=== PATIENT | female | born 1980 | race Caucasian/White ===

== ENCOUNTER 2016-12-28 06:54 | Inpatient (IN) | payer MEDICAID ==
[~2016-12-28] VITALS: Ht 149.9 cm; Wt 80.5 kg
[~2016-12-28 06:54] MED LIST: CALC600T5 PO; PREN-21 PO; [UNRECOGNIZED DRUG - CODE] SQ
[2016-12-28 07:32] VITALS: BP 121/76; PULSE 72; Ht 149.9 cm; Wt 80.5 kg
[2016-12-28] MEDS ORDERED: BUTORPHANOL 2 MG INJ IV PRN (08:00)
[2016-12-28] MEDS ORDERED: METHYLERGONOVINE 0.2 MG INJ IM PRN (08:00)
[2016-12-28] MEDS ORDERED: OXYTOCIN 30 UNITS/LR 500 ML IV PRN (08:00)
[2016-12-28] MEDS ORDERED: CARBOPROST 250 MCG INJ IM PRN (08:00)
[2016-12-28] MEDS ORDERED: LIDOCAINE 1% (MPF) 30 ML INJ INJ PRN (08:00)
[2016-12-28] MEDS ORDERED: MISOPROSTOL 200 MCG TAB PR PRN (08:00)
[2016-12-28] MEDS ORDERED: LACTATED RINGER'S 1,000 ML IV PRN (08:00)
[2016-12-28] MEDS: BUTORPHANOL 2 MG INJ IV PRN ×2 (08:24→10:57)
[2016-12-28] MEDS: LACTATED RINGER'S 1,000 ML IV SCH ×2 (09:14→13:21)
[2016-12-28] MEDS ORDERED: MINERAL OIL LIGHT 10 ML VIAL TOP PRN (09:30)
[2016-12-28 09:37] LABS: WHITE BLOOD COUNT 5.2 10^3/ul (4.8-10.8)
[2016-12-28 09:38] LABS: BASOPHILS % 0.6 % (0.0-2.0); EOSINOPHILS % 0.2 % (0.0-7.0); HEMATOCRIT 41.5 % (37.0-47.0); HEMOGLOBIN 14.3 g/dl (12.0-16.0); LYMPHOCYTES # 1.3 10^3/ul (0.8-2.9); LYMPHOCYTES % 25.3 % (15.0-51.0); MEAN CORPUSCULAR HEMOGLOBIN 30.2 pg (29.0-33.0); MEAN CORPUSCULAR HGB CONC 34.5 g/dl (32.0-37.0); MEAN CORPUSCULAR VOLUME 87.6 fl (82.0-101.0); MEAN PLATELET VOLUME 12.1 fl (7.4-10.4); MONOCYTE # 0.4 10^3/ul (0.3-0.9); MONOCYTES % 7.1 % (0.0-11.0); NEUTROPHIL # 3.4 10^3/ul (1.6-7.5); PLATELET COUNT 164 10^3/UL (140-415); RED BLOOD COUNT 4.74 10^6/ul (4.20-5.40); RED CELL DISTRIBUTION WIDTH 14.7 % (11.5-14.5)
[2016-12-28 11:35] LABS: INR 0.91; PROTIME 12.3 Sec (12.2-14.2)
[2016-12-28 11:36] LABS: PARTIAL THROMBOPLASTIN TIME 28.3 Sec (25.0-35.0)
[2016-12-28] MEDS ORDERED: FENTAnyl 2MCG/ML-ROPIV 0.2% 100 ML ONE (11:49)
[2016-12-28 11:52] LABS: ALBUMIN 3.4 g/dl (3.3-4.9); ALBUMIN/GLOBULIN RATIO 1.21; BILIRUBIN,INDIRECT 0.1 mg/dl (0-1.1); BILIRUBIN,TOTAL 0.1 mg/dl (0.2-1.3); CALCIUM 9.2 mg/dl (8.4-10.2); CREATININE 0.92 mg/dl (0.44-1.00); POTASSIUM 4.8 mmol/L (3.5-5.1); TOTAL PROTEIN 6.2 g/dl (6.1-8.1)
[2016-12-28] MEDS ORDERED: DIPHENHYDRAMINE 50 MG INJ IV PRN (12:00)
[2016-12-28] MEDS ORDERED: ONDANSETRON 4 MG INJ IV PRN (12:00)
[2016-12-28] MEDS ORDERED: FENTAnyl 2MCG/ML-ROPIV 0.2% 100 ML BAG EPI SCH (12:00)
[2016-12-28] MEDS ORDERED: EPHEDrine SULFATE 50 MG/5 ML SYG IV PRN (12:00)
[2016-12-28] MEDS ORDERED: NALOXONE (0.4 MG/ML) INJ IV PRN (12:00)
[2016-12-28] MEDS ORDERED: OXYTOCIN 30 UNITS/LR 500 ML IV SCH ×3 (17:00→21:00)
--- NOTE | 2016-12-28 17:33 | HP ---
Date/Time of Note Date/Time of Note DATE: 12/28/16 TIME: 17:32 OB - History Hx of Present Free Text/Dictation ucx \ : 3 Para: 2 Care: Good Care Ultrasounds: Normal mid trimester US Obstetrical Complications: None Past Family/Social History * Past Medical, Surgical, Family and Obstetric Histories reviewed from chart. OB Admission Exam Vital Signs Vital Signs Vital Signs Date Time Temp Pulse Resp B/P Pulse Ox O2 Delivery O2 Flow Rate FiO2 12/28/16 07:32 97.8 72 121/76 Physical Exam Heart: Rhythm Normal Extremities: Normal Reflexes: Normal Last 72 hours Lab Results CBC & BMP 12/28/16 08:00 12/28/16 10:31 Liver Function Test 12/28/16 10:31 Alanine Aminotransferase (ALT/SGPT) 42 Albumin 3.4 Alkaline Phosphatase 253 H Aspartate Amino Transf (AST/SGOT) 25 Direct Bilirubin 0.00 Total Protein 6.2 OB Assessment/Plan Reason for admission: active labor Plan: Expectant Management Other plan: iup term plan BERRY KENNEDY MD Dec 28, 2016 17:33
[2016-12-28] MEDS ORDERED: LIDOCAINE 2%/EPI 30 ML INJ ONE (22:37)
[2016-12-28] MEDS ORDERED: nitroGLYCerin 50 MG INJ ONE (22:46)
--- NOTE | 2016-12-28 23:44 | RADRPT ---
PROCEDURE: Pelvic ultrasound, limited. CLINICAL INDICATION: Pelvic pain. TECHNIQUE: Multiple sonographic images of the pelvis were obtained utilizing a transabdominal aleah hnique. The images were reviewed on a PACS workstation. COMPARISON: None. FINDINGS: The uterus is enlarged and heterogeneous. No abnormal uterine mass is identified. The endometrial e cho complex is homogeneous and measures 21.6 mm. There is no abnormal flow to suggest retained produ cts. IMPRESSION: Thickened endometrium with no evidence of retained products. .Singh Sierra MD, Date Time Electronically viewed and signed by .Singh Sierra MD, MD on 12/28/2016 23:43 .T/
[2016-12-29] MEDS ORDERED: LACTATED RINGER'S 1,000 ML IV* SCH ×4 (00:37→00:51)
[2016-12-29] MEDS ORDERED: DEXTROSE 5%-LR 1,000 ML IV SCH ×4 (00:37→00:51)
[2016-12-29] MEDS: DEXTROSE 5%-LR 1,000 ML IV SCH ×3 (00:37→16:37)
[2016-12-29] MEDS ORDERED: CARBOPROST 250 MCG INJ IM PRN ×5 (01:00)
[2016-12-29] MEDS ORDERED: DIPHENHYDRAMINE 50 MG INJ IV PRN (01:00)
[2016-12-29] MEDS ORDERED: ONDANSETRON 4 MG INJ IV PRN (01:00)
[2016-12-29] MEDS ORDERED: WITCH HAZEL/GLYCERIN PAD PR PRN (01:00)
[2016-12-29] MEDS ORDERED: LANOLIN 7 GM TUBE TOP PRN (01:00)
[2016-12-29] MEDS ORDERED: MISOPROSTOL 200 MCG TAB PR PRN ×5 (01:00)
[2016-12-29] MEDS ORDERED: DIBUCAINE 1% 30 GM OINT PR PRN (01:00)
[2016-12-29] MEDS ORDERED: METHYLERGONOVINE 0.2 MG INJ IM PRN ×5 (01:00)
[2016-12-29] MEDS ORDERED: ACETAMINOPHEN 325 MG TAB PO PRN (01:00)
[2016-12-29] MEDS ORDERED: OXYCODONE/ASPIRIN (4.88/325) TAB PO PRN (01:00)
[2016-12-29] MEDS ORDERED: ZOLPIDEM 5 MG TAB PO PRN (01:00)
[2016-12-29] MEDS ORDERED: OXYTOCIN 30 UNITS/LR 500 ML IV PRN ×5 (01:00)
[2016-12-29] MEDS ORDERED: BENZOCAINE 20% 56 ML SPRAY TOP PRN (01:00)
--- NOTE | 2016-12-29 01:14 | LDN ---
Date/Time of Note Date/Time of Note DATE: 12/29/16 TIME: 01:05 Delivery Summary 36 y/o with h/o still at 25 wks and DVT with first delivered a female over 2nd degree laceration. Weight: 3335 gram- 7 lbs 6 oz Apagar: 8 and 9 Time of delivery: 21:18 Placenta not delivered after one hour. Patient transferred to OR for removal of retained placenta Weeks of Gestation 38 1/7 weeks Placenta Delivered: Spontaneously Meconium: none Episiotomy: No Perineal laceration: 2 Laceration repair: 3-0 vicryl Anesthesia type: Epidural Estimated blood loss: 100 Sponge & Needle done & correct: Yes All needle counts correct: Yes Any foreign bodies felt in the: No Problems: Infant Delivery Information Sex Sex: female Apgars 1 Minute: 8 5 Minute: 9 Suctioning Nose & mouth suctioned at ladan: Yes Umbilical Cord Umbilical cord with: 3 Vessels Cord presentations: no nuchal cord Cord Blood was obtained: Yes NANCY AGUILLON Dec 29, 2016 01:14
[2016-12-29] MEDS: CEFAZOLIN 1 GM/50 ML (PMX) 50 ML IVPB SCH ×3 (01:34→17:22)
[2016-12-29 02:35] VITALS: BP 107/68; PULSE 101; RESP 18
[2016-12-29 03:35] VITALS: BP 122/65; PULSE 94; RESP 18
[2016-12-29] MEDS: LACTATED RINGER'S 1,000 ML IV* SCH ×3 (04:17→16:37)
[2016-12-29] MEDS: IBUPROFEN 600 MG TAB PO SCH ×3 (05:39→17:21)
--- NOTE | 2016-12-29 08:43 | QN ---
Documentation Comment PPD#1 is stable ,afebrile tolerates diet No Vb +BM+Adequate urine VS stable Gen NAD Abd soft NT ND Geenitalia No blood at perinium --->discharge plan tomorrow -->remove RODDY Marques M.D. Dec 29, 2016 08:43
[2016-12-29 08:48] VITALS: BP 92/54; PULSE 83; RESP 16
[2016-12-29] MEDS: SENNA/DOCUSATE NA (8.6MG/50MG) TAB PO PRN ×2 (09:03→20:55)
[2016-12-29 11:29] LABS: BASOPHILS % 0.2 % (0.0-2.0); HEMOGLOBIN 9.9 g/dl (12.0-16.0); LYMPHOCYTES # 2.1 10^3/ul (0.8-2.9); LYMPHOCYTES % 16.7 % (15.0-51.0); MEAN CORPUSCULAR HGB CONC 34.1 g/dl (32.0-37.0); MEAN CORPUSCULAR VOLUME 87.9 fl (82.0-101.0); MEAN PLATELET VOLUME 11.6 fl (7.4-10.4); MONOCYTE # 0.9 10^3/ul (0.3-0.9); MONOCYTES % 7.2 % (0.0-11.0); NEUTROPHIL # 9.3 10^3/ul (1.6-7.5); NEUTROPHILS % 75.4 % (39.0-77.0); WHITE BLOOD COUNT 12.4 10^3/ul (4.8-10.8)
[2016-12-29 11:42] LABS: PLATELET COUNT 126 10^3/UL (140-415); POSITIVE DIFF @See below
[2016-12-29] MEDS: ENOXAPARIN 40 MG/0.4 ML SYG SC SCH (12:16)
[2016-12-29 12:22] VITALS: BP 94/53; PULSE 74; RESP 16
--- NOTE | 2016-12-29 13:51 | DS ---
Date/Time of Note Date/Time of Note home today or next day DATE: 12/29/16 TIME: 13:48 Obstetrical Discharge Record Final Diagnosis Final Diagnosis: Term delivered Other Final Diagnosis S/P vaginal delivery Vaginal Delivery Obstetrical Delivery: Spontaneous, Laceration, Repaired Condition on Discharge Physical Assessment Last Vitals: see nurses notes Voiding: Yes Bowel Movement: Yes Breast: Soft, non-tender, Filling Fundus: Firm Abdomen and Incision: soft BS= Episiotomy: N/A perineum healing Calf Tenderness: No Patient Condition: Good MADYSON ZAVALA MD Dec 29, 2016 13:51
--- NOTE | 2016-12-29 13:54 | PD.PPDC ---
[employer] Discharge Instruction Provider Information Physician Information 36 Y/O female had vaginal delivery t Diagnosis Final Diagnosis: S/P vaginal delivery Condition Patient Condition: Good Diet Diet: Resume Regular Diet Activity/Restrictions Activity: Normal Activity May Shower Restrictions: Nothing in the Vagina Return to Work or School: Feb 15, 2017 Follow-up Follow-up with Physician: 4, Week/Weeks (in clinic ) Return to clinic for OB Instructions: Breast Tenderness Depression Comment: pelvic rest X 6 weeks MADYSON ZAVALA MD Dec 29, 2016 13:54
[2016-12-29] MEDS ORDERED: IBUP-1542 PO (13:56)
[2016-12-29 16:50] VITALS: BP 103/51; PULSE 74; RESP 14
[2016-12-29 18:19] LABS: BASOPHILS % 0.2 % (0.0-2.0); EOSINOPHILS % 0.2 % (0.0-7.0); HEMATOCRIT 26.1 % (37.0-47.0); HEMOGLOBIN 8.9 g/dl (12.0-16.0); LYMPHOCYTES # 1.7 10^3/ul (0.8-2.9); LYMPHOCYTES % 18.8 % (15.0-51.0); MEAN CORPUSCULAR HEMOGLOBIN 30.2 pg (29.0-33.0); MEAN CORPUSCULAR HGB CONC 34.1 g/dl (32.0-37.0); MEAN CORPUSCULAR VOLUME 88.5 fl (82.0-101.0); MEAN PLATELET VOLUME 11.5 fl (7.4-10.4); MONOCYTE # 0.6 10^3/ul (0.3-0.9); MONOCYTES % 6.2 % (0.0-11.0); NEUTROPHIL # 6.9 10^3/ul (1.6-7.5); NEUTROPHILS % 74.2 % (39.0-77.0); PLATELET COUNT 118 10^3/UL (140-415); RED BLOOD COUNT 2.95 10^6/ul (4.20-5.40); RED CELL DISTRIBUTION WIDTH 15.3 % (11.5-14.5); WHITE BLOOD COUNT 9.3 10^3/ul (4.8-10.8)
[2016-12-29 20:45] VITALS: BP 83/50; PULSE 66; RESP 18
[2016-12-29] MEDS: FERROUS SULFATE (EC) 325 MG TAB PO SCH (20:53)
[2016-12-30] MEDS: IBUPROFEN 600 MG TAB PO SCH ×3 (00:11→13:03)
[2016-12-30] MEDS: LACTATED RINGER'S 1,000 ML IV* SCH ×2 (00:37→08:37)
[2016-12-30] MEDS: DEXTROSE 5%-LR 1,000 ML IV SCH ×2 (00:37→08:37)
[2016-12-30] MEDS: CEFAZOLIN 1 GM/50 ML (PMX) 50 ML IVPB SCH ×3 (01:57→14:00)
[2016-12-30 04:15] VITALS: BP 99/54; PULSE 63; RESP 18
[2016-12-30 08:00] VITALS: BP 99/60; PULSE 75; RESP 18
[2016-12-30] MEDS ORDERED: INFLUENZA VIRUS VACCINE 0.5 ML (DISPENSING) IM* ONE (09:00)
[2016-12-30] MEDS: FERROUS SULFATE (EC) 325 MG TAB PO SCH ×2 (09:27→13:02)
[2016-12-30] MEDS: ENOXAPARIN 40 MG/0.4 ML SYG SC SCH (09:29)
[2016-12-30 09:44] LABS: BASOPHILS % 0.4 % (0.0-2.0); EOSINOPHILS # 0.1 10^3/ul (0.0-0.5); EOSINOPHILS % 0.6 % (0.0-7.0); HEMATOCRIT 29.2 % (37.0-47.0); HEMOGLOBIN 9.9 g/dl (12.0-16.0); LYMPHOCYTES # 1.8 10^3/ul (0.8-2.9); LYMPHOCYTES % 18.5 % (15.0-51.0); MEAN CORPUSCULAR HEMOGLOBIN 30.4 pg (29.0-33.0); MEAN CORPUSCULAR HGB CONC 33.9 g/dl (32.0-37.0); MEAN CORPUSCULAR VOLUME 89.6 fl (82.0-101.0); MEAN PLATELET VOLUME 11.5 fl (7.4-10.4); MONOCYTE # 0.5 10^3/ul (0.3-0.9); MONOCYTES % 5.5 % (0.0-11.0); NEUTROPHIL # 7.3 10^3/ul (1.6-7.5); NEUTROPHILS % 74.2 % (39.0-77.0); PLATELET COUNT 140 10^3/UL (140-415); RED BLOOD COUNT 3.26 10^6/ul (4.20-5.40); RED CELL DISTRIBUTION WIDTH 15.2 % (11.5-14.5); WHITE BLOOD COUNT 9.8 10^3/ul (4.8-10.8)
[2016-12-31] MEDS ORDERED: DIPHTH/TET/ACEL PERTUSS (ADULT) 0.5 ML VIAL IM* ONE (09:00)
[2016-12-31] MEDS ORDERED: MEASLES,MUMPS,RUBELLA VACCINE INJ SC* ONE (09:00)
--- NOTE | 2016-12-31 16:26 | OPR ---
DATE OF OPERATION: 12/28/2016 PREOPERATIVE DIAGNOSES: A 36-year-old 3, para 2, ____, with retained placenta. DISCHARGE DIAGNOSES: A 36-year-old 3, para 2, ____with retained placenta. PROCEDURE: Manual removal of placenta. SURGEON: Dr. Nancy Dickens. ANESTHESIOLOGY: General endotracheal anesthesia. ESTIMATED BLOOD LOSS: 250 mL (overall seems viable in operating room). IV FLUIDS: 900 mL. SPECIMEN: Placenta. COMPLICATIONS: None. URINE OUTPUT: 80 mL. INDICATIONS: The patient is a 20-year-old 3, delivered a viable over a first- degree posterior vaginal wall laceration. The placenta did not deliver after 1 of labor of delivery of . HOSPITAL COURSE: Anesthesiologist called and the patient's course and updated patient's situation. The patient transferred to OR for removal of the placenta. Risks, alternatives and possible complications have been discussed in detail with the patient and he r . The risks including but not limited to bleeding, infection, retained placenta if there i s a high suspicion for placental abnormality, blood transfusion, blood transfusion related infection , risk of anesthesia, adhesion, removal of uterus or any other indicated surgery with possibility of injury to other organs (bowel, bladder, ureters, vessels and nerves) was discussed with the patient and her . Both expressed understanding. Repeat the risks. All of their questions answered . She signed informed consent. DESCRIPTION OF OPERATION: The patient was identified and the procedure verified. She was given gen eral anesthesia and placed in modified, dorsal lateral to reposition. The patient was then prepped and draped in the normal sterile fashion. The patient was examined under general anesthesia. Then after given noxious oxide IV the placenta manually removed. Ultrasound performed. There was no further placental tissue in the uterine cavity. Cytotec 800 mcg given. There was no active bleeding. Uterus was firm. The patient tolerated the procedure well. She was extubated in the operating room and transferred to the recovery room in stable condition. Dictated By: NANCY SMITH/YOAN Conf#: [id number] DID#: [id number]
== END 2016-12-30 14:58 | disposition home or self-care (01) | DRG 767 ==
LOC: L-D 06:54 → OBT 06:54 → L-D 07:23 → OBT 07:56 → L-D 23:04 → PP1 12-29 02:37
PROVIDERS: ADMIT Obstetrics & Gynecology; ATTEND Obstetrics & Gynecology
PROC: 10E0XZZ Delivery of Products of Conception, External Approach (ICD-10-PCS; principal; 2016-12-28)
PROC: 10D17Z9 Manual Extraction of Products of Conception, Retained, Via Natural or Artificial Opening (ICD-10-PCS; 2016-12-28)
PROC: 0KQM0ZZ Repair Perineum Muscle, Open Approach (ICD-10-PCS; 2016-12-28)
PROC: 3E0234Z Introduction of Serum, Toxoid and Vaccine into Muscle, Percutaneous Approach (ICD-10-PCS; 2016-12-30)
DX: O99.214 Obesity complicating childbirth (principal); E66.9 Obesity, unspecified; O70.1 Second degree perineal laceration during delivery; Z37.0 Single live birth; O73.0 Retained placenta without hemorrhage; Z3A.38 38 weeks gestation of pregnancy; Z68.35 Body mass index [BMI] 35.0-35.9, adult; Z23 Encounter for immunization
CPT/HCPCS: 62319; 76815; 80053; 85025; 85610; 85730; 86592; 86850; 86900; 86901; 86920; 87340; 88307; 90686; G0463; J0595; J0690; J1650; J2590; J3010; J7120; J7121